=== PATIENT | female | born 1950 | race Two or more races ===

== ENCOUNTER 2017-11-28 10:42 | Outpatient (CLI) | payer OTHER | END 2017-11-28 11:00 | disposition home or self-care (01) | LOC: NUCLEAR 10:42 | DX: E21.2 Other hyperparathyroidism (principal); M85.9 Disorder of bone density and structure, unspecified | CPT/HCPCS: 78070; A9500 ==

== ENCOUNTER 2018-04-11 11:12 | Outpatient (CLI) | payer OTHER | END 2018-04-11 11:17 | disposition home or self-care (01) | LOC: RAD 501 11:12 | DX: M54.5 Low back pain (principal); M25.561 Pain in right knee ==